=== PATIENT | female | born 2000 | race Hispanic/Latino ===

== ENCOUNTER 2022-02-08 16:27 | Emergency (ER) | payer SELFPAY ==
[2022-02-08 18:24] LABS: Urine Blood Negative (Negative); Urine Glucose Negative (Negative); Urine Protein Negative (Negative); Urine Specific Gravity 1.015 (1.005-1.030); Urine pH 6.5 (5.0-7.0)
[2022-02-08 18:37] LABS: Urine Mucus Slight /HPF (None Seen); Urine RBC <5 /HPF (None Seen)
[2022-02-08 18:38] LABS: Urine Specific Gravity/Preg 1.015 (1.005-1.030)
[2022-02-08 19:02] LABS: Absolute Lymphocytes (CBC) 3.2 K/uL (0.7-4.9); Hematocrit 39.7 % (36.0-45.0); Lymphocytes % 29.3 % (15.3-44.8); MCV 87.8 fL (80-100); MPV 6.8 fL (7.6-11.3); RBC Red Blood Cell Count 4.53 M/uL (3.86-4.86)
[2022-02-08 19:11] LABS: Albumin 3.8 g/dL (3.4-5.0); Bilirubin Total 0.3 mg/dL (0.2-1.0); Potassium 3.9 mmol/L (3.5-5.1); Protein, Total 7.6 g/dL (6.4-8.2)
[2022-02-08 19:29] LABS: SARS-COV-2 RT PCR NEGATIVE (NEGATIVE)
--- NOTE | 2022-02-08 20:38 | RAD REPORT ---
EXAM DESCRIPTION: US - Transvaginal OB - 02/08/2022 8:28 pm CLINICAL HISTORY: ABD PAIN COMPARISON: No comparisons FINDINGS: No IUP identified. Both ovaries demonstrate vascular flow. The right ovary measures 3 x 3 x 2.6 cm with volume of 12.2 cc. The left ovary measures 2.8 x 2.1 x 2.6 cm with volume of 8.1 cc. En dometrial echo complex measures 10 millimeters. Small right ovarian cyst. IMPRESSION: No IUP identified. Therefore, cannot exclude early normal IUP, early ectopic, or failed first trimester . Bilateral ovarian blood flow.
--- NOTE | 2022-02-08 20:43 | ER ---
Nurse's Notes [facility] Name: Rochelle Perez Age: 22 yrs Sex: Female : 2000 Arrival Date: 02/08/2022 Time: 16:29 Bed 6 Private MD: Diagnosis: Less than 8 weeks gestation of ;UTI/ Urinary tract infection, site not specified Presentation: 02/08 18:05 Chief complaint: Patient states: LMP 11/23/21, US today and "mass to right ovary" and vg1 was told to come to ED. ABD cramping began today, denies vaginal bleeding. Coronavirus screen: Vaccine status: Patient reports being unvaccinated. Client denies travel out of the [place] in the last 14 days. Ebola Screen: Patient negative for fever greater than or equal to 101.5 degrees Fahrenheit, and additional compatible Ebola Virus Disease symptoms. Initial Sepsis Screen: Does the patient meet any 2 criteria? No. Patient's initial sepsis screen is negative. Does the patient have a suspected source of infection? No. Patient's initial sepsis screen is negative. Risk Assessment: Do you want to hurt yourself or someone else? Patient reports no desire to harm self or others. Onset of symptoms was February 08, 2022. 18:05 Method Of Arrival: Ambulatory vg1 18:05 Acuity: VICKI 3 vg1 Triage Assessment: 18:08 General: Appears uncomfortable, Behavior is calm, cooperative. Pain: Complains of pain vg1 in right lower quadrant Pain currently is 2 out of 10 on a pain scale. GI: Patient currently denies vaginal bleeding. 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 - Social history:: Smoking status: Patient denies any tobacco usage or history of. Screenin:50 Abuse screen: Denies threats or abuse. Denies injuries from another. Abuse screen: tw5 Denies threats or abuse. Nutritional screening: No deficits noted. Tuberculosis screening: No symptoms or risk factors identified. Fall Risk None identified. Assessment: 18:47 General: Appears in no apparent distress. comfortable, Behavior is calm, cooperative, mb9 appropriate for age. Pain: Complains of pain in right lower quadrant Quality of pain is described as stabbing, Pain began suddenly, Is intermittent. Neuro: Level of Consciousness is awake, alert, obeys commands, Oriented to person, place, time, situation, Appropriate for age. Cardiovascular: Heart tones S1 S2 present Rhythm is regular. Respiratory: Airway is patent Respiratory effort is even, unlabored, Respiratory pattern is regular, symmetrical, Breath sounds are clear bilaterally. GI: Abdomen is flat, Bowel sounds present X 4 quads. Abd is soft and non tender X 4 quads. Reports intolerance of food, nausea, vomiting. : No signs and/or symptoms were reported regarding the genitourinary system. EENT: No signs and/or symptoms were reported regarding the EENT system. Derm: Skin is pink, warm \\T\\ dry. Musculoskeletal: Range of motion: intact in all extremities. 19:06 Reassessment: Report given to Nata ZALDIVAR. mb9 19:20 General: Appears comfortable, Behavior is cooperative, appropriate for age, anxious. tw5 General:. Pain: Denies pain. Neuro: Level of Consciousness is awake, alert, obeys commands, Oriented to person, place, time, situation, Reports dizziness. Respiratory: Airway is patent Respiratory effort is even, labored. Vital Signs: 18:05 BP 126 / 95; Pulse 87; Resp 15; Temp 99.1; Pulse Ox 100% ; Weight 79.38 kg; Height 5 vg1 ft. 3 in. (160.02 cm); Pain 2/10; 18:48 BP 112 / 79; Pulse 78; Resp 14; Pulse Ox 100% ; mb9 18:05 Body Mass Index 31.00 (79.38 kg, 160.02 cm) vg1 ED Course: 16:29 Patient arrived in ED. mr 18:08 Triage completed. vg1 18:08 Arm band placed on. vg1 18:22 Berto Avalos is PHCP. jl9 18:22 Kemar Domínguez MD is Attending Physician. jl9 18:35 Vianey Dahl RN is Primary Nurse. mb9 18:47 COVID-19/FLU A+B/RSV Sent. mb9 18:47 CBC with Diff Sent. mb9 18:47 CMP Sent. mb9 18:47 Lipase Sent. mb9 18:47 Inserted saline lock: 20 gauge in right antecubital area, using aseptic technique. mb9 Blood collected. 18:57 CBC with Diff Sent. mb9 18:57 CMP Sent. mb9 18:57 Lipase Sent. mb9 20:30 US Transvaginal Ob In Process Unspecified. EDMS 20:50 Patient has correct armband on for positive identification. tw5 20:50 No provider procedures requiring assistance completed. IV discontinued, intact, tw5 bleeding controlled, No redness/swelling at site. Pressure dressing applied. Administered Medications: No medications were administered Medication: 20:50 VIS not applicable for this client. tw5 Outcome: 20:42 Discharge ordered by . kyle 20:50 Discharged to home ambulatory. tw5 20:50 Condition: good 20:50 Discharge instructions given to patient. 20:50 Patient left the ED. tw5 Signatures: Dispatcher [employer] PATRICKWY Vianey Coley Victoria, RN RN [email or web address] Nata Broderick tw5 Berto Avalos Mary Beth, RN RN mb9
--- NOTE | 2022-02-08 20:43 | EDPHYS ---
Physician Documentation [facility] Name: Rochelle Perez Age: 22 yrs Sex: Female : 2000 Arrival Date: 02/08/2022 Time: 16:29 Bed 6 Private MD: ED Physician Kemar Domínguez HPI: 02/08 20:40 This 22 yrs old Female presents to ER via Ambulatory with complaints of jl9 Abdominal Pain, Vomiting/Diarrhea. Patient reports having a positive test. . 20:40 The patient presents with abdominal pain that is diffuse. Onset: The symptoms/episode jl9 began/occurred yesterday. The symptoms do not radiate. The symptoms are described as dull. Severity of pain: in the emergency department the pain is a / . 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 - Social history:: Smoking status: Patient denies any tobacco usage or history of. ROS: 20:41 Constitutional: Negative for fever, chills, and weight loss, Eyes: Negative for injury, jl9 pain, redness, and discharge, ENT: Negative for injury, pain, and discharge, Neck: Negative for injury, pain, and swelling, Cardiovascular: Negative for chest pain, palpitations, and edema, Respiratory: Negative for shortness of breath, cough, wheezing, and pleuritic chest pain. 20:41 Back: Negative for injury and pain, : Negative for injury, bleeding, discharge, and swelling, MS/Extremity: Negative for injury and deformity, Skin: Negative for injury, rash, and discoloration, Neuro: Negative for headache, weakness, numbness, tingling, and seizure, Psych: Negative for depression, anxiety, suicide ideation, homicidal ideation, and hallucinations, Allergy/Immunology: Negative for hives, rash, and allergies, Endocrine: Negative for neck swelling, polydipsia, polyuria, polyphagia, and marked weight changes, Hematologic/Lymphatic: Negative for swollen nodes, abnormal bleeding, and unusual bruising. 20:41 Abdomen/GI: Positive for abdominal pain, nausea and vomiting. Exam: 20:41 Constitutional: This is a well developed, well nourished patient who is awake, alert, jl9 and in no acute distress. Head/Face: Normocephalic, atraumatic. Eyes: Pupils equal round and reactive to light, extra-ocular motions intact. Lids and lashes normal. Conjunctiva and sclera are non-icteric and not injected. Cornea within normal limits. Periorbital areas with no swelling, redness, or edema. ENT: Mucous membranes moist. Neck: Trachea midline, no thyromegaly or masses palpated, and no cervical lymphadenopathy. Supple, full range of motion without nuchal rigidity, or vertebral point tenderness. No Meningismus. Chest/axilla: Normal chest wall appearance and motion. Nontender with no deformity. No lesions are appreciated. Cardiovascular: Regular rate and rhythm with a normal S1 and S2. No gallops, murmurs, or rubs. Normal PMI, no JVD. No pulse deficits. Respiratory: Lungs have equal breath sounds bilaterally, clear to auscultation and percussion. No rales, rhonchi or wheezes noted. No increased work of breathing, no retractions or nasal flaring. Abdomen/GI: Soft, non-tender, with normal bowel sounds. No distension or tympany. No guarding or rebound. No evidence of tenderness throughout. Back: No spinal tenderness. No costovertebral tenderness. Full range of motion. Skin: Warm, dry with normal turgor. Normal color with no rashes, no lesions, and no evidence of cellulitis. MS/ Extremity: Pulses equal, no cyanosis. Neurovascular intact. Full, normal range of motion. Neuro: Awake and alert, GCS 15, oriented to person, place, time, and situation. Cranial nerves II-XII grossly intact. Motor strength 5/5 in all extremities. Sensory grossly intact. Cerebellar exam normal. Normal gait. Psych: Awake, alert, with orientation to person, place and time. Behavior, mood, and affect are within normal limits. Vital Signs: 18:05 BP 126 / 95; Pulse 87; Resp 15; Temp 99.1; Pulse Ox 100% ; Weight 79.38 kg; Height 5 vg1 ft. 3 in. (160.02 cm); Pain 2/10; 18:48 BP 112 / 79; Pulse 78; Resp 14; Pulse Ox 100% ; mb9 18:05 Body Mass Index 31.00 (79.38 kg, 160.02 cm) vg1 MDM: 18:22 Patient medically screened. 9 20:41 Data reviewed: vital signs, nurses notes. Counseling: I had a detailed discussion with kyle the patient and/or guardian regarding: the historical points, exam findings, and any diagnostic results supporting the discharge/admit diagnosis, lab results, radiology results, the need for outpatient follow up, an OB/Gyne specialist, to return to the emergency department if symptoms worsen or persist or if there are any questions or concerns that arise at home. 02/08 18:23 Order name: Urine Microscopic Only; Complete Time: 19:30 02/08 18:24 Order name: CBC with Diff; Complete Time: 19:30 [facility] 02/08 18:24 Order name: CMP; Complete Time: 19:30 [facility] 02/08 18:24 Order name: Lipase; Complete Time: 19:30 [facility] 02/08 18:24 Order name: COVID-19/FLU A+B/RSV; Complete Time: 19:30 [facility] 02/08 18:24 Order name: Urine --Ancillary (enter results); Complete Time: 19:30 02/08 18:24 Order name: IV Saline Lock; Complete Time: 18:43 [facility] 02/08 18:24 Order name: Labs collected and sent; Complete Time: 18:47 [facility] 02/08 18:24 Order name: Urine Dipstick-Ancillary; Complete Time: 18:26 EDMS 02/08 19:33 Order name: Quantitative Hcg; Complete Time: 20:12 [facility] 02/08 19:33 Order name: US Transvaginal Ob; Complete Time: 20:39 [facility] Administered Medications: No medications were administered Disposition: 20:41 Chart complete. jl9 Disposition Summary: 02/08/22 20:42 Discharge Ordered Location: Home jl9 Condition: Stable jl9 Diagnosis - Less than 8 weeks gestation of jl9 - UTI/ Urinary tract infection, site not specified jl9 Followup: jl9 - With: Private Physician - When: 1 - 2 days - Reason: Recheck today's complaints, Continuance of care, Re-evaluation by your physician Discharge Instructions: - Discharge Summary Sheet jl9 - Abdominal Pain During jl9 - Urinary Tract Infection, Adult, [id number] jl9 Forms: - Medication Reconciliation Form jl9 - Thank You Letter jl9 - Antibiotic Education jl9 - Prescription Opioid Use jl9 Prescriptions: - Cephalexin 500 mg Oral Capsule - take 1 capsule by ORAL route every 12 hours for 7 days; 14 capsule; Refills: 0, jl9 Product Selection Permitted Addendum: 02/10/2022 13:40 Co-signature as Attending Physician, Kemar Domínguez MD I agree with the assessment and c thompson plan of care. Signatures: Dispatcher [employer] EDKemar Sharpe MD MD cha Garcia, Victoria, RN RN Berto Josue jl9
[2022-02-08 21:49] VITALS: TEMP 99.1; O2SAT 100
[2022-02-08 21:55] VITALS: BP 112/79
== END 2022-02-08 20:50 | disposition home or self-care (01) ==
LOC: ER 16:27
DX: O23.41 Unspecified infection of urinary tract in pregnancy, first trimester (principal); N39.0 Urinary tract infection, site not specified; Z3A.01 Less than 8 weeks gestation of pregnancy; Z20.822 Contact with and (suspected) exposure to COVID-19
CPT/HCPCS: 0241U; 36415; 76817; 80053; 81003; 81015; 81025; 83690; 84702; 85025; 99283